=== PATIENT | female | born 1980 | race Caucasian/White ===

== ENCOUNTER → 2021-01-08 07:53 | Outpatient (BNVA) | payer OTHER, SELFPAY | PROVIDERS: PCP Internal Medicine; Visit Provider Surgery ==

== ENCOUNTER → 2021-01-11 08:11 | Outpatient (BNVA) | payer OTHER, SELFPAY | PROVIDERS: PCP Internal Medicine; Visit Provider Dietitian, Registered | DX: E66.01 Morbid (severe) obesity due to excess calories (principal); Z68.42 Body mass index [BMI] 45.0-49.9, adult | CPT/HCPCS: 97802 ==

== ENCOUNTER → 2021-01-18 09:15 | Outpatient (BNVA) | payer OTHER, SELFPAY | PROVIDERS: PCP Internal Medicine; Visit Provider Physician Assistant ==

== ENCOUNTER → 2021-02-14 07:28 | Outpatient (BNVA) | payer OTHER, SELFPAY | PROVIDERS: PCP Internal Medicine; Visit Provider Surgery ==

== ENCOUNTER → 2021-04-19 09:25 | Outpatient (BNVA) | payer BC, SELFPAY | PROVIDERS: PCP Internal Medicine; Visit Provider Physician Assistant Surgical ==

== ENCOUNTER → 2021-04-25 08:08 | Outpatient (BNVA) | payer BC, SELFPAY | PROVIDERS: Referring Provider Surgery; Visit Provider Dietitian, Registered | DX: E66.01 Morbid (severe) obesity due to excess calories (principal); Z68.42 Body mass index [BMI] 45.0-49.9, adult | CPT/HCPCS: 97803 ==

== ENCOUNTER → 2021-06-25 11:24 | Outpatient (BNVA) | payer BC, SELFPAY | PROVIDERS: PCP Internal Medicine; Visit Provider Orthopaedic Surgery | DX: M17.11 Unilateral primary osteoarthritis, right knee (principal) | CPT/HCPCS: 20610; J1100 ==

== ENCOUNTER 2025-03-15 15:11 | Outpatient (AMB) | payer OTHER, SELFPAY ==
--- NOTE | 2025-03-15 15:21 | MHC.OFFVIS ---
Intake Visit Reasons: 6m/ Migraine Allergies bupropion (From WELLBUTRIN) Allergy (Severe, Unverified 03/15/25 15:26) SUICIDAL DREAMS hepatitis B immune globulin (HEPATITIS B IMMUNE GLOBULIN) Allergy (Severe, Unverified 03/15/25 15:26) ELEVATED TEMP-104 F buspirone Allergy (Unknown, Verified 03/15/25 15:26) vivid dreams hepatitis B virus vaccine, recombin Allergy (Unknown, Verified 03/15/25 15:26) Unknown Wellbutrin Allergy (Unknown, Unverified 03/15/25 15:26) Unknown hep b vaccination Allergy (Unknown, Uncoded 03/15/25 15:26) Unknown PLASTIC ID BRACELET Adverse Reaction (Mild, Uncoded 03/15/25 15:26) REDNESS, ITCHY-RESOLVED WITH GAUZE BARRIER Medication List - Last Reconciled 03/15/25 by Astrid Shipley CNP resluxdzol-kroszwqhnxrmb-fqjn 50-325-40 mg tabs PO clonazepam mg PO clonidine HCl mg PO divalproex (Depakote) 125 mg PO BID divalproex (Depakote) 250 mg PO BEDTIME omeprazole 40 mg PO DAILY pantoprazole 40 mg PO DAILY propranolol 20 mg PO DAILY HPI Comments Details: 45-year-old RH woman with a diagnosis of PTSD, depression, anxiety, bipolar disorder type II, polycystic ovarian disease, Arnold-Chiari Type I malformation, and migraine without aura. She was doing okay. Headaches were happening about 1-2x/week. They were not so bothersome and she was able to function. She only had to use butalbital a few times a month and medication helped. Sleep was better after starting Depakote. Mood was okay. [facility] Medical History (Updated 03/15/25 @ 15:23 by Astrid Shipley CNP) Anxiety Depression Menstrual migraine Arnold-Chiari malformation, type I Morbid obesity Review of Systems Const Denies chills, Denies daytime sleepiness, Reports difficulty sleeping, Denies fatigue, Denies fever(s), Denies frequent falls, Reports headache(s), Denies increased appetite, Denies poor appetite, Denies snoring, Denies weakness, Denies weight gain and Denies weight loss Eyes Denies loss of vision ENT Denies vertigo, Denies dizziness and Reports headache(s) Card Denies chest pain at rest, Denies chest pain with activity, Denies syncope, Denies leg edema and Denies palpitations Resp Denies snoring GI Denies constipation, Denies heartburn, Denies diarrhea and Denies nausea Denies urinary frequency, Denies urinary incontinence and Denies urinary urgency Musc Denies abnormal gait, Denies numbness and Denies tingling Skin/Breast Denies dry skin and Denies rash Neuro Denies abnormal gait, Denies vertigo, Denies dizziness, Denies syncope, Denies frequent falls, Reports headache(s), Denies lack of coordination, Denies loss of vision, Denies memory loss, Denies numbness, Denies restless legs, Denies seizure-like activity, Denies tingling, Denies paresthesias, Denies tremor(s) and Denies weakness Psych Reports anxiety, Denies depression, Denies auditory hallucinations, Denies memory loss, Denies visual hallucinations and Denies suicidal ideation Endo Denies fatigue and Denies palpitations Physical Exam Const Other: General Appearance:? normal, in no acute distress. Skin:? no rashes, no significant birthmarks. Heart:? S1, S2 normal, no murmurs. Lungs:? clear anteriorly and posteriorly. Extremities:? no edema. Psych:? alert, oriented, cognitive function intact, cooperative with exam. Neuro Other: Mental Status:?Normal attention, orientation, memory and affect.? Cranial Nerves:?Pupils are equal, round and reactive to light. External occular muscles are intact. Visual abdul are full. Face is symmetrical. Facial sensations are normal. Tongue is midline. Palate elevates symmetrically. Shoulder shrugging is normal. Hearing to bedside conversation is normal. Sensory Exam:?....? Coordination:?No ataxia,?no titubation.? Gait Exam: Within normal limits. Extrapyramidal System:?No tremor, rigidity with normal facial expressions.? Pronator Drift:?Not present.? Involuntary Movements:?No tremors seen.? Speech:?Normal.? Results Reviewed Results Reviewed: CT brain WO at [facility] [place] May 2017: WNL Assessment & Plan Assessment & Plan (1) Migraine without aura: Code(s): G43.009 - Migraine without aura, not intractable, without status migrainosus Category: Medical Qualifiers: Status migrainosus presence: without status migrainosus Intractability: not intractable Qualified Code(s): G43.009 - Migraine without aura, not intractable, without status migrainosus Plan: Continue propranolol 20mg 1 tablet daily Continue fshxwgbaab-MPYR-enic 50-325-40mg 2 tablets as needed for headache #16 for 30 days (2) Arnold-Chiari malformation, type I: Code(s): G93.5 - Compression of brain Category: Medical (3) Menstrual migraine: Code(s): G43.829 - Menstrual migraine, not intractable, without status migrainosus Category: Medical Qualifiers: Status migrainosus presence: without status migrainosus Intractability: not intractable Qualified Code(s): G43.829 - Menstrual migraine, not intractable, without status migrainosus Plan Meds tried: topiramate, propranolol, sumatriptan, butalbital, OTC Medications: New propranolol 20 mg PO DAILY 90 days 90 tabs 1RF propranolol 20 mg PO DAILY 90 tabs 1RF 90 days cxdzjmiihf-lhgbpyjypmhgu-jzfo 50-325-40 mg 1 tab PO DAILY PRN 16 tabs 2RF headache 30 days Coding Level of Care Code Est Pt Level 4 (03354) Diagnoses Migraine without aura and without status migrainosus, not intractable G43.009 Status migrainosus presence: without status migrainosus Intractability: not intractable Arnold-Chiari malformation, type I G93.5 Menstrual migraine without status migrainosus, not intractable G43.829 Status migrainosus presence: without status migrainosus Intractability: not intractable
--- OUTSIDE RECORDS SUMMARY | 2025-03-15 16:03 | XMS_ITS | Clinical Summary ---
Author Organization [facility] Address [address] [place] [address] Care Team Providers Care Escrow Assistant Name Role Phone Eri Parmar MD Primary Care Provider [phone] Social History Tobacco Use Types Packs/Day Years Used Date Smoking Tobacco: Never Assessed Sex and Gender Information Value Date Recorded Sex Assigned at Not on file Gender Identity Not on file Sexual Orientation Not on file Plan of Treatment Health Maintenance Due Date Last Done Comments Hepatitis B Vaccines (1 of 3 - 3-dose series) 1978 Hepatitis C Screening 1978 COVID-19 Vaccine (#1) 1978 Depression Screening 1990 Preventative Health Evaluation 1996 DTap / Tdap / Td (1 - Tdap) 1997 Cervical Cancer Screening (P ap Smear) 1999 Colon Cancer Screening (Colonoscopy) 2023 Influenza Vaccine (#1) 2025 Pneumococcal Vaccine Aged Out No long er eligible based on patient's age to complete this topic RSV Ped < 20 months Aged Out No longe r eligible based on patient's age to complete this topic Care Teams Escrow Assistant Relationship Specialty Start Date End Date Eri Parmar MD [address] [address] PCP - General Internal Medicine 07/25/20
--- OUTSIDE RECORDS SUMMARY | 2025-03-15 16:03 | XMS_ITS | Clinical Summary ---
Author Organization [facility] Address [address] [place] [address] Care Team Providers Care Road Gang Supervisor Name Role Phone Eri Parmar Primary Care Provider [phone] Allergies Active Allergy Reactions Criticality Noted Date Comments Hepatitis B Virus Vaccine Fever 08/24/2020 Bupropion Hcl Rash 08/24/2020 Medications LORazepam (ATIVAN) 1 mg tablet Take 1 mg by mouth daily as needed. anxiety 05/02/2020 Active butalbitaL-acet aminophen 50-325 mg tablet Take 1 tablet by mouth every 4 hours as needed. 05/15/2020 Active Active Problems No known active problems Social History Tobacco Use Types Packs/Day Years Used Date Smoking Tobacco: Every Day Smokeless Tobacco: Never Comments Unknown Sex and Gender Information Value Date Recorded Sex Assigned at Not on file Legal Sex Female 2:18 PM EST Gender Identity Not on file Sexual Orientation Not on file Last Filed Vital Signs Vital Sign Reading Time Taken Comments Blood Pressure 134/82 08/24/2020 2:05 PM EST Pulse 92 08/24/2020 2:05 PM EST Temperature 36.8 C (98.3 F) 08/24/2020 2:05 PM EST Respiratory Rate - - Oxygen Saturation - - Inhaled Oxygen Concentration - - Weight 131.5 kg (290 lb) 09/07/2020 7:46 AM EST Height 160 cm (5' 3 ) 09/07/2020 7:46 AM EST Body Mass Index 51.37 09/07/2020 7:46 AM EST Plan of Treatment Not on file Care Teams Road Gang Supervisor Relationship Specialty Start Date End Date Eri Parmar [address] [place] [id number] PCP - General Internal Medicine 08/22/20
--- OUTSIDE RECORDS SUMMARY | 2025-03-15 16:03 | XMS_ITS | Encounter Summary ---
Author Organization [facility] Address [address] [place] [address] Phone Care Team Providers Care Picture Engraver Name Role Phone Eri Parmar MD Primary Care Provider Encounter Details Date Type Department Care Team (Late st Contact Info) Description 01/14/2023 Procedure Pass [facility] [address] [place] [address] Social History Tobacco Use Types Packs/Day Years Used Date Smoking Tobacco: Former Cigarettes 0.5 28.2 0 08/04/1993 - 09/28/2021 Smokeless Tobacco: Never Comments:Quit for a few year s in between those dates as well Alcohol Use Standard Drinks/Week Comments Not Currently 0 (1 standard drink = 0.6 oz pur e alcohol) Casual drink on a holiday Education Answer Date Recorded Are you interested in more education? Not on darrius e 11/30/2022 Are you concerned about learning? Not on file 11/30/2022 No 11/30/2022 No 11/30/2022 Digital Access Answer Date Recorded No 12/27/2022 No 12/27/2022 Reliable internet access at home? Not on file 12/27/2022 Device with a working camera? Not on file Intimate Partner Violence Answer Date R ecorded Are you denied basic needs s uch as food, clothing, or medical care? No 01/14/2023 In the past 12 months have y ou been in a relationship with a person who hurts, threatens, or tries to control you? No 01/14/2023 Are you denied basic needs s uch as food, clothing, or medical care? No 01/14/2023 In the past 12 months have y ou been in a relationship with a person who hurts, threatens, or tries to control you? No 01/14/2023 Comments No Sex and Gender Information Value Date Recorded Sex Assigned at Female 11/05/2021 12:40 PM EDT Legal Sex Female 12:35 PM EDT Gender Identity Female 11/05/2021 12:40 PM EDT Sexual Orientation Straight 11/05/2021 12 :40 PM EDT documented as of this encounter Functional Status * Calculated C-SSRS Risk Score (Lifetime/Recent) Answer Date of Assessment Author No Risk Indicated 01/14/2023 2:09 PM EDT Mathieu Nicholson RN * [place] Suicide Severity Rating Scale (Screener/Recent Self-Report) Question Answer Date of Assessment Author 1. Wish to be (Past 1 Month) No 01/14/2023 2:09 PM EDT Mathieu Nicholson, SANJIV 2. Non-Specific Active Suicidal Thoughts (Past 1 Month) No 01/14/2023 2:09 PM EDT Mathieu Nicholson, SANJIV 6. Suicidal Behavior (Lifetime) No 01/14/2023 2:09 PM EDT Mathieu Nicholson, SANJIV documented as of this encounter Plan of Treatment Upcoming Encounters Date Type Department Care Team (Late st Contact Info) Description 03/16/2025 10:10 AM EDT Telemedicine [facility] [address], [address] [place] [address] Mare Alfaro MD [address] [place] [address] [email or web address] documented as of this encounter Visit Diagnoses Not on filedocumented in this encounter Care Teams Picture Engraver Relationship Specialty Start Date End Date Eri Parmar MD [address] [place] [address] PCP - General Internal Medicine 11/05/21 documented as of this encounter Additional Source Comments The information contained in this document represents components of the legal health record. It is not the complete legal health record.[facility]
== END 2025-03-15 15:39 | disposition home or self-care (01) ==
LOC: HO.HSM 15:11
PROVIDERS: PCP Internal Medicine; Referring Provider Internal Medicine; Visit Provider Registered Nurse
DX: G43.009 Migraine without aura, not intractable, without status migrainosus (principal); G93.5 Compression of brain; G43.829 Menstrual migraine, not intractable, without status migrainosus
CPT/HCPCS: 99214